=== PATIENT | male | born 1985 ===

== ENCOUNTER 2021-05-09 08:00 | Outpatient (CLI) | payer OTHER | END 2021-05-09 08:30 | disposition home or self-care (01) | LOC: PPH VACUNA 08:00 | DX: Z23 Encounter for immunization (principal) ==

== ENCOUNTER 2021-05-30 08:00 | Outpatient (CLI) | payer OTHER | END 2021-05-30 08:30 | disposition home or self-care (01) | LOC: PPH VACUNA 08:00 | DX: Z23 Encounter for immunization (principal) ==

== ENCOUNTER 2021-11-15 09:00 | Outpatient (CLI) | payer OTHER | END 2021-11-15 09:15 | disposition home or self-care (01) | LOC: PPH VACUNA 09:00 | PROVIDERS: ATTEND Emergency Medicine Pediatric Emergency Medicine | DX: Z23 Encounter for immunization (principal) ==